=== PATIENT | male | born 1995 | race Caucasian/White ===

== ENCOUNTER 2018-04-18 16:35 | Emergency (ER) | payer SELFPAY ==
[~2018-04-18] VITALS: Ht 182.9 cm; Wt 60.3 kg
--- NOTE | 2018-04-18 17:04 | RAD ---
EXAM: Head CT without contrast. HISTORY: Headache. TECHNIQUE: Computed tomographic images of the head were obtained without contrast. *One or more of the following individualized dose reduction techniques were utilized for this examination: 1. Automated exposure control. 2. Adjustment of the mA and/or kV according to patient size. 3. Use of iterative reconstruction technique. COMPARISON: None. FINDINGS: There is no acute or subacute extra-axial or intraparenchymal hemorrhage. There is no mass effect or midline shift. There is no hydrocephalus. The vargas-white matter differentiation pattern is intact. There is severe bilateral ethmoid, severe left frontal and mild sphenoid sinus mucosal thickening. The orbits and mastoid air cells are unremarkable. IMPRESSION: 1. No acute intracranial finding. 2. Paranasal sinus disease. Electronically signed by: Sailaja Ghosh MD (04/18/2018 5:00 PM) [place] [id number]
[2018-04-18 17:21] LABS: BASO # 0.1 x10^3/uL (0.0-0.2); BASO % 1 % (0-3); EOS # 0.6 x10^3/uL (0.0-0.7); EOS % 6 % (0-3); HEMATOCRIT 49.8 % (39.0-53.0); HEMOGLOBIN 16.8 g/dL (13.0-17.5); LYMPH # 3.1 x10^3/uL (1.0-4.8); LYMPH % 34 % (24-48); MEAN CORPUSCULAR HEMOGLOBIN 31 pg (25-35); MEAN CORPUSCULAR HGB CONC 34 g/dL (31-37); MEAN CORPUSCULAR VOLUME 91 fL (79-100); MONO # 0.6 x10^3/uL (0.0-1.1); MONO % 7 % (0-9); NEUT # 4.9 x10^3uL (1.8-7.7); NEUT % 53 % (31-73); PLATELET COUNT 381 x10^3/uL (140-400); RED BLOOD COUNT 5.45 x10^6/uL (4.30-5.70); RED CELL DISTRIBUTION WIDTH 13.5 % (11.5-14.5); WHITE BLOOD COUNT 9.3 x10^3/uL (4.0-11.0)
[2018-04-18 17:29] LABS: CALCIUM 9.4 mg/dL (8.5-10.1); GFR 94.3; POTASSIUM 3.9 mmol/L (3.5-5.1)
--- NOTE | 2018-04-18 18:05 | PHYS DOC ---
Past History Past Medical History: No Pertinent History Past Surgical History: No Surgical History Alcohol Use: Occasionally Drug Use: None Adult General Chief Complaint Chief Complaint: HEADACHE HPI HPI 23-year-old male presenting the emergency department today with headache and weakness in his arm and leg for approximately 30 days. He reports having a headache that is on the left side that is nonradiating mild to moderate and getting worse over the past 30 days. He also feels mildly dizzy and with blurred vision. He also describes mild numbness in his left hand. He has his family history of seizures and brain tumors. Review of systems is negative for chest pain shortness of breath fevers chills neck pain neck stiffness confusion. All other review of systems is negative. ED course: 23-year-old male presenting with headache and focal neurologic changes. Patient is outside of the TPA window and outside of the mechanical thrombectomy window as his last known well was greater than 30 days ago. Vitals are unremarkable is well-appearing on examination but does have appreciable weakness on his left upper extremity more with his energy attorney then bicep or tricep strength. The left lower extremity demonstrates mild weakness in flexion at the knee joint with normal strength in extension of the knee joint. The remainder strength examination is unremarkable. Head CT is unremarkable. Blood work is unremarkable. We will admit the patient for neurology consultation and MRI of the brain. I spoke with Dr. Alfaro [facility] who accepts the patient for admission. Allergies Allergies Allergies Coded Allergies Type Severity Reaction Last Updated Verified No Known Drug Allergies 04/18/18 No Physical Exam Physical Exam Constitutional: Well developed, well nourished, no acute distress, non-toxic appearance. [] HENT: Normocephalic, atraumatic, bilateral external ears normal, oropharynx moist, no oral exudates, nose normal. [] Eyes: PERRLA, EOMI, conjunctiva normal, no discharge. [] Neck: Normal range of motion, no tenderness, supple, no stridor. [] Cardiovascular:Heart rate regular rhythm, no murmur [] Lungs & Thorax: Bilateral breath sounds clear to auscultation [] Abdomen: Bowel sounds normal, soft, no tenderness, no masses, no pulsatile masses. [] Skin: Warm, dry, no erythema, no rash. [] Back: No tenderness, no CVA tenderness. [] Extremities: No tenderness, no cyanosis, no clubbing, ROM intact, no edema. [] Neurologic: Mental status: Awake oriented and alert x3 Cranial nerves: Extraocular movements intact, eyebrows mackenzie bilaterally, smile symmetric, uvula elevation nl, shoulder shrug intact bilaterally, tongue protrusion normal DTRs: 2+ Sensation: decreased in the left hand, but otherwise intact Strength: as above Psychologic: Affect normal, judgement normal, mood normal. [] Current Patient Data Vital Signs Vital Signs Date Time Temp Pulse Resp B/P (MAP) Pulse Ox O2 Delivery O2 Flow Rate FiO2 04/18/18 16:45 97.9 74 16 100 Room Air Lab Results Laboratory Tests Test 04/18/18 17:08 White Blood Count 9.3 x10^3/uL (4.0-11.0) Red Blood Count 5.45 x10^6/uL (4.30-5.70) Hemoglobin 16.8 g/dL (13.0-17.5) Hematocrit 49.8 % (39.0-53.0) Mean Corpuscular Volume 91 fL (79-100) Mean Corpuscular Hemoglobin 31 pg (25-35) Mean Corpuscular Hemoglobin Concent 34 g/dL (31-37) Red Cell Distribution Width 13.5 % (11.5-14.5) Platelet Count 381 x10^3/uL (140-400) Neutrophils (%) (Auto) 53 % (31-73) Lymphocytes (%) (Auto) 34 % (24-48) Monocytes (%) (Auto) 7 % (0-9) Eosinophils (%) (Auto) 6 % (0-3) H Basophils (%) (Auto) 1 % (0-3) Neutrophils # (Auto) 4.9 x10^3uL (1.8-7.7) Lymphocytes # (Auto) 3.1 x10^3/uL (1.0-4.8) Monocytes # (Auto) 0.6 x10^3/uL (0.0-1.1) Eosinophils # (Auto) 0.6 x10^3/uL (0.0-0.7) Basophils # (Auto) 0.1 x10^3/uL (0.0-0.2) Sodium Level 144 mmol/L (136-145) Potassium Level 3.9 mmol/L (3.5-5.1) Chloride Level 104 mmol/L (98-107) Carbon Dioxide Level 28 mmol/L (21-32) Anion Gap 12 (6-14) Blood Urea Nitrogen 12 mg/dL (8-26) Creatinine 1.0 mg/dL (0.7-1.3) Estimated GFR (Cockcroft-Gault) 94.3 Glucose Level 92 mg/dL (70-99) Calcium Level 9.4 mg/dL (8.5-10.1) EKG EKG [] Radiology/Procedures Radiology/Procedures [] Course & Med Decision Making Course & Med Decision Making Pertinent Labs and Imaging studies reviewed. (See chart for details) [] Dragon Disclaimer Dragon Disclaimer This electronic medical record was generated, in whole or in part, using a voice recognition dictation system. Departure Departure: Impression: Primary Impression: Headache Additional Impression: Focal neurological deficit Disposition: 02 XFER SHT-TRM HOSP Condition: STABLE Referrals: PCP,NO (PCP) Problem Qualifiers PILO GONZALEZ MD Apr 18, 2018 18:05
[2018-04-18] MEDS ORDERED: LORazepam 2 MG/ML VIAL IV ONE (18:45)
[2018-04-18 19:47] VITALS: BP 171/80
== END 2018-04-18 21:22 | disposition short-term general hospital (02) ==
LOC: ER 16:35
DX: R51 Headache (principal); R29.818 Other symptoms and signs involving the nervous system
CPT/HCPCS: 36415; 70450; 80048; 85025; 96374; 99285; J2060

== ENCOUNTER 2018-05-19 17:45 | Emergency (ER) | payer SELFPAY ==
[~2018-05-19] VITALS: Ht 175.3 cm; Wt 58.0 kg
--- NOTE | 2018-05-19 18:06 | ED.ADGEN ---
Past History Past Medical History: No Pertinent History, Anxiety, Depression, Migraines, Seizure, Sinusitis Additional Past Medical Histor: separation disorder Past Surgical History: No Surgical History Alcohol Use: Occasionally Drug Use: None Adult General Chief Complaint Chief Complaint ".. I don't know.. I am confused.. I am . Scattered ...maybe I had a seizure... I ran out my seizure meds....." 4 days... ago..." [facility] HPI Patient is a 23 year old male who presents with above hx and complaints of confusions. Patient complaints of left-sided weakness and tingling. Patient on presentation hyperventilating. Pt seen here on 04/18/18, for headache, eventually transfer to [facility] to care of Dr. Alfaro. Pt. had further work up and discharged on Dilatin 300 mg a night after MRI and neurology follow-up. Pt. has been non compliant the last 4 days. Pt. also found to have sinusitis on previous work up. Pt. somewhat a poor historian. . Tonight presents as if post ictal. Patient does have past history of depression, anxiety disorder, separation disorder, seizure disorder, migraine headaches, and sinusitis. 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 Significant other- girl friend advised he is not had a seizure meds last 4 days. Pt. did use chain saw for about 4 hrs this afternoon before going to work at [employer]. Patient lives with his father has heart failure and a sister that has a disability. There is a nonspecific history of seizures and family and brain tumors. Patient denies any drug use today. No history of trauma. No history of travel or specific ill contacts. No history of fevers. Review of Systems Review of Systems Constitutional: Denies fever or chills [] Eyes: Denies change in visual acuity, redness, or eye pain []glasses. No terminal nystagmus. HENT: Complaints of nasal congestion and drainage. Small carlos on tongue. Does have poor dentition Respiratory: Denies cough or shortness of breath [] Cardiovascular: No additional information not addressed in HPI [] GI: Denies abdominal pain, nausea, vomiting, bloody stools or diarrhea [] : Denies dysuria or hematuria [] Musculoskeletal: Denies back pain or joint pain []complaints of weakness more Lt. side.. Integument: Denies rash or skin lesions [] Neurologic: Denies headache, subjective Lt side weakness, Rt. hand dominate or complaints of tingling in hands. []Complaints of confusion. DTRs +2 at patella and brachial. We will extremities on request. Patient does have does have some memory lapses events.. Endocrine: Denies polyuria or polydipsia [] All other systems were reviewed and found to be within normal limits, except as documented in this note. Family History Family History Father CHF. There is some nonspecific history of seizures and brain tumors with family members. Current Medications Current Medications Current Medications Medications (Trade) Dose Ordered Sig/Mandeep Start Time Stop Time Status Last Admin Dose Admin Albuterol/ Ipratropium (Duoneb) 3 ml RTQID 05/19/18 20:00 05/20/18 03:49 DC Aspirin (Terra Aspirin) 325 mg 1X ONCE 05/19/18 19:30 05/19/18 19:31 DC 05/19/18 19:52 325 MG Aspirin (Children'S Aspirin) 81 mg DAILY 05/20/18 09:00 05/20/18 09:00 DC Ceftriaxone Sodium 1 gm/ Sodium Chloride 50 ml @ 100 mls/hr DAILY 05/20/18 09:00 05/20/18 09:00 DC Ceftriaxone Sodium (Rocephin) 1 gm STK-MED ONCE 05/19/18 19:12 05/19/18 19:14 DC Fluticasone Propionate (Flonase) 2 spray BID 05/19/18 21:00 05/20/18 03:50 DC Lactated Ringer's 1,000 ml @ 200 mls/hr Q5H 05/19/18 20:00 05/20/18 03:50 DC Lorazepam (Ativan) 2 mg 1X PRN PRN 05/19/18 20:00 05/20/18 03:49 DC Magnesium Hydroxide (Milk Of Magnesia) 2,400 mg 1X ONCE 05/19/18 19:15 05/19/18 19:16 DC 05/19/18 19:16 2,400 MG Ondansetron HCl (Zofran) 4 mg PRN Q4HRS PRN 05/19/18 20:00 05/20/18 03:49 DC Phenytoin Sodium (Dilantin) 400 mg 1X ONCE 05/20/18 01:00 05/20/18 01:01 DC Potassium Chloride (KCl Oral Soln) 40 meq 1X ONCE 05/19/18 19:15 05/19/18 19:16 DC 05/19/18 19:17 40 MEQ Sodium Chloride 50 ml @ As Directed STK-MED ONCE 05/19/18 19:12 05/19/18 19:14 DC Allergies Allergies Allergies Coded Allergies Type Severity Reaction Last Updated Verified No Known Drug Allergies 04/18/18 No Physical Exam Physical Exam Constitutional: in acute emotional distress, non-toxic appearance. [] HENT: Normocephalic, atraumatic, bilateral external ears normal, oropharynx moist, no oral exudates, nose normal. Poor dentition Eyes: PERRLA, EOMI, conjunctiva normal, no discharge. [] Neck: Normal range of motion, no tenderness, supple, no stridor. [] Cardiovascular:Heart rate regular rhythm, no murmur [] Lungs & Thorax: Bilateral breath sounds equal apexes few scattered wheezes auscultation [] Abdomen: Bowel sounds normal, soft, no tenderness, no masses, no pulsatile masses. [] Skin: Warm, dry, no erythema, no rash. [] Back: No tenderness, no CVA tenderness. [] Extremities: No tenderness, no cyanosis, no clubbing, ROM intact, no edema. [] Neurologic: Alert and oriented X 3, normal motor function, normal sensory function, no focal deficits noted. []DTRs are +2 patella and brachial. Distilling Department Supervisor equal. Right-hand dominant. No drift. Psychologic: Affect very anxious, judgement normal, mood normal. [] Current Patient Data Vital Signs Vital Signs Date Time Temp Pulse Resp B/P (MAP) Pulse Ox O2 Delivery O2 Flow Rate FiO2 05/19/18 20:30 95 20 125/60 (81) 97 Room Air 05/19/18 17:45 97.7 Lab Results Laboratory Tests Test 05/19/18 17:49 05/19/18 17:55 05/19/18 18:30 05/19/18 19:14 White Blood Count 6.9 x10^3/uL (4.0-11.0) Red Blood Count 4.87 x10^6/uL (4.30-5.70) Hemoglobin 14.9 g/dL (13.0-17.5) Hematocrit 43.9 % (39.0-53.0) Mean Corpuscular Volume 90 fL (79-100) Mean Corpuscular Hemoglobin 31 pg (25-35) Mean Corpuscular Hemoglobin Concent 34 g/dL (31-37) Red Cell Distribution Width 13.8 % (11.5-14.5) Platelet Count 361 x10^3/uL (140-400) Neutrophils (%) (Auto) 47 % (31-73) Lymphocytes (%) (Auto) 36 % (24-48) Monocytes (%) (Auto) 11 % (0-9) H Eosinophils (%) (Auto) 6 % (0-3) H Basophils (%) (Auto) 1 % (0-3) Neutrophils # (Auto) 3.2 x10^3uL (1.8-7.7) Lymphocytes # (Auto) 2.5 x10^3/uL (1.0-4.8) Monocytes # (Auto) 0.7 x10^3/uL (0.0-1.1) Eosinophils # (Auto) 0.4 x10^3/uL (0.0-0.7) Basophils # (Auto) 0.1 x10^3/uL (0.0-0.2) Erythrocyte Sedimentation Rate 2 (0-15) Prothrombin Time 11.9 SEC (9.4-11.4) H Prothrombin Time INR 1.2 (0.9-1.1) H PTT 27 SEC (23-33) D-Dimer (Shannan) < 0.19 mg/L (0.00-0.50) Sodium Level 142 mmol/L (136-145) Potassium Level 3.4 mmol/L (3.5-5.1) L Chloride Level 103 mmol/L (98-107) Carbon Dioxide Level 26 mmol/L (21-32) Anion Gap 13 (6-14) Blood Urea Nitrogen 11 mg/dL (8-26) Creatinine 0.9 mg/dL (0.7-1.3) Estimated GFR (Cockcroft-Gault) 106.5 Glucose Level 109 mg/dL (70-99) H Calcium Level 9.1 mg/dL (8.5-10.1) Magnesium Level 2.2 mg/dL (1.8-2.4) Total Bilirubin 0.6 mg/dL (0.2-1.0) Direct Bilirubin 0.1 mg/dL (0.0-0.2) Aspartate Amino Transferase (AST) 13 U/L (15-37) L Alanine Aminotransferase (ALT) 18 U/L (16-63) Alkaline Phosphatase 60 U/L (46-116) Creatine Kinase 120 U/L (39-308) Troponin I Quantitative < 0.017 ng/mL (0-0.055) UG-Nzt-Y-Type Natriuretic Peptide 18 pg/mL (0-124) Total Protein 7.4 g/dL (6.4-8.2) Albumin 4.4 g/dL (3.4-5.0) Lipase 109 U/L (73-393) Glucose (Fingerstick) 120 mg/dL (70-99) H Phenytoin (Dilantin) Level < 0.5 mcg/mL (10.0-20.0) L Phenytoin Last Dose Date Unk Phenytoin Last Dose Time Unk Urine Collection Type Unknown Urine Color Straw Urine Clarity Clear Urine pH 8.5 Urine Specific [place] 1.015 Urine Protein Neg (NEG-TRACE) Urine Glucose (UA) Neg mg/dL (NEG) Urine Ketones (Stick) Neg mg/dL (NEG) Urine Blood Neg (NEG) Urine Nitrite Neg (NEG) Urine Bilirubin Neg (NEG) Urine Urobilinogen Dipstick 0.2 mg/dL (0.2 mg/dL) Urine Leukocyte Esterase Neg (NEG) Urine RBC 0 /HPF (0-2) Urine WBC 0 /HPF (0-4) Urine Squamous Epithelial Cells Occ /LPF Urine Bacteria 0 /HPF (0-FEW) Urine Opiates Screen Neg (NEG) Urine Methadone Screen Neg (NEG) Urine Barbiturates Neg (NEG) Urine Phencyclidine Screen Neg (NEG) Urine Amphetamine/Methamphetamine Neg (NEG) Urine Benzodiazepines Screen Neg (NEG) Urine Cocaine Screen Neg (NEG) Urine Cannabinoids Screen Neg (NEG) Urine Ethyl Alcohol Neg (NEG) EKG EKG My interpretation EKG shows a sinus rhythm at 92 bpm. Does have an occasional atrial premature complex. Some findings consistent with left ventricular hypertrophic. No findings acute STEMI with contralateral changes. There is a sinus arrhythmia.[] Radiology/Procedures Radiology/Procedures My interpretation CT of head shows no shift, mass, edema, bleed, or fracture. Does have findings of bilateral sinusitis fluid levels and ethmoid and sphenoid sinuses as well as some in the frontal sinus on the left.[] Reviewed MRI completed 04/18/2018 at [facility]. Findings showed sinusitis no acute neurological findings. My interpretation chest x-ray shows no acute cardiopulmonary findings. Does have some findings consistent of hyper inflation. Course & Med Decision Making Course & Med Decision Making Pertinent Labs and Imaging studies reviewed. (See chart for details). Reviewed MRI results at [facility] on recent admission there. Offered treatment patient for further neuro evaluation and cardiac serial testing. Patient refused admission. Patient advised not to drive.or at risks activities. Must follow-up primary care. Return if any concerns. Patient to resume his Dilantin 300 mg at night. Must keep follow-up with his neurologist. Patient advised to push fruit juices. Again Advised no driving until released neurology and his primary. Pt. girl lawson stated at time discharge is mental status had return to his normal presentation. Pt. left ambulatory with out problems. [] Final Impression Final Impression 1. Mental Status Change[]- Suspect Post ictal -atypical seizure 2. Hx. Seizure Disorder 3. Anxiety Disorder 4. Hx. Migraines 5. Hx. Sinus infections 6. Hx. Depression 7. Hx. Separation Disorder Dragon Disclaimer Dragon Disclaimer This electronic medical record was generated, in whole or in part, using a voice recognition dictation system. Dragon Disclaimer This chart was dictated in whole or in part using Voice Recognition software in a busy, high-work load, and often noisy Emergency Department environment. It may contain unintended and wholly unrecognized errors or omissions. Discharge Summary Visit Information Final Diagnosis Problems Medical Problems: (1) Confusion Status: Acute (2) Seizure Status: Acute Brief Hospital Course Allergies Allergies Coded Allergies Type Severity Reaction Last Updated Verified No Known Drug Allergies 04/18/18 No Vital Signs Vital Signs Date Time Temp Pulse Resp B/P (MAP) Pulse Ox O2 Delivery O2 Flow Rate FiO2 05/19/18 20:30 95 20 125/60 (81) 97 Room Air 05/19/18 17:45 97.7 Lab Results Laboratory Tests Test 05/19/18 17:49 05/19/18 17:55 05/19/18 18:30 05/19/18 19:14 White Blood Count 6.9 x10^3/uL (4.0-11.0) Red Blood Count 4.87 x10^6/uL (4.30-5.70) Hemoglobin 14.9 g/dL (13.0-17.5) Hematocrit 43.9 % (39.0-53.0) Mean Corpuscular Volume 90 fL (79-100) Mean Corpuscular Hemoglobin 31 pg (25-35) Mean Corpuscular Hemoglobin Concent 34 g/dL (31-37) Red Cell Distribution Width 13.8 % (11.5-14.5) Platelet Count 361 x10^3/uL (140-400) Neutrophils (%) (Auto) 47 % (31-73) Lymphocytes (%) (Auto) 36 % (24-48) Monocytes (%) (Auto) 11 % (0-9) Eosinophils (%) (Auto) 6 % (0-3) Basophils (%) (Auto) 1 % (0-3) Neutrophils # (Auto) 3.2 x10^3uL (1.8-7.7) Lymphocytes # (Auto) 2.5 x10^3/uL (1.0-4.8) Monocytes # (Auto) 0.7 x10^3/uL (0.0-1.1) Eosinophils # (Auto) 0.4 x10^3/uL (0.0-0.7) Basophils # (Auto) 0.1 x10^3/uL (0.0-0.2) Erythrocyte Sedimentation Rate 2 (0-15) Prothrombin Time 11.9 SEC (9.4-11.4) Prothromb Time International Ratio 1.2 (0.9-1.1) Activated Partial Thromboplast Time 27 SEC (23-33) D-Dimer (Shannan) < 0.19 mg/L (0.00-0.50) Sodium Level 142 mmol/L (136-145) Potassium Level 3.4 mmol/L (3.5-5.1) Chloride Level 103 mmol/L (98-107) Carbon Dioxide Level 26 mmol/L (21-32) Anion Gap 13 (6-14) Blood Urea Nitrogen 11 mg/dL (8-26) Creatinine 0.9 mg/dL (0.7-1.3) Estimated GFR (Cockcroft-Gault) 106.5 Glucose Level 109 mg/dL (70-99) Calcium Level 9.1 mg/dL (8.5-10.1) Magnesium Level 2.2 mg/dL (1.8-2.4) Total Bilirubin 0.6 mg/dL (0.2-1.0) Direct Bilirubin 0.1 mg/dL (0.0-0.2) Aspartate Amino Transf (AST/SGOT) 13 U/L (15-37) Alanine Aminotransferase (ALT/SGPT) 18 U/L (16-63) Alkaline Phosphatase 60 U/L (46-116) Creatine Kinase 120 U/L (39-308) Troponin I Quantitative < 0.017 ng/mL (0-0.055) NL-Khx-L-Type Natriuretic Peptide 18 pg/mL (0-124) Total Protein 7.4 g/dL (6.4-8.2) Albumin 4.4 g/dL (3.4-5.0) Lipase 109 U/L (73-393) Glucose (Fingerstick) 120 mg/dL (70-99) Phenytoin (Dilantin) Level < 0.5 mcg/mL (10.0-20.0) Phenytoin Last Dose Date Unk Phenytoin Last Dose Time Unk Urine Collection Type Unknown Urine Color Straw Urine Clarity Clear Urine pH 8.5 Urine Specific [place] 1.015 Urine Protein Neg (NEG-TRACE) Urine Glucose (UA) Neg mg/dL (NEG) Urine Ketones (Stick) Neg mg/dL (NEG) Urine Blood Neg (NEG) Urine Nitrite Neg (NEG) Urine Bilirubin Neg (NEG) Urine Urobilinogen Dipstick 0.2 mg/dL (0.2 mg/dL) Urine Leukocyte Esterase Neg (NEG) Urine RBC 0 /HPF (0-2) Urine WBC 0 /HPF (0-4) Urine Squamous Epithelial Cells Occ /LPF Urine Bacteria 0 /HPF (0-FEW) Urine Opiates Screen Neg (NEG) Urine Methadone Screen Neg (NEG) Urine Barbiturates Neg (NEG) Urine Phencyclidine Screen Neg (NEG) Urine Amphetamine/Methamphetamine Neg (NEG) Urine Benzodiazepines Screen Neg (NEG) Urine Cocaine Screen Neg (NEG) Urine Cannabinoids Screen Neg (NEG) Urine Ethyl Alcohol Neg (NEG) Brief Hospital Course Mr. Little is a 23 old male who presented with hx of seizure and post ictal confusion. Pt. demanded to be discharged home. Pt. also not taken seizure meds Dilantin the last fourt days. Risks of discharge and other missed pathology discussed with pt. Pt. exhibited UCAR capacity. Discharge Information Condition at Discharge: Improved, Stable Disposition/Orders: D/C to Home Dischare Medications Current Medications Lactated Ringer's 1,000 ml @ 1,000 mls/hr Q1H IV Last administered on at 18:40; Admin Dose 1,000 MLS/HR; Start 05/19/18 at 18:11; Stop 05/19/18 at 19: 10; Status DC Lorazepam (Ativan) 2 mg 1X ONCE PO Last administered on 05/19/18at 18:45; Admin Dose 2 MG; Start 05/19/18 at 18:30; Stop 05/19/18 at 18:38; Status DC Phenytoin Sodium (Dilantin) 600 mg 1X ONCE PO Last administered on 05/19/18at 19 :08; Admin Dose 600 MG; Start 05/19/18 at 18:45; Stop 05/19/18 at 18:46; Status DC Potassium Chloride (KCl Oral Soln) 40 meq 1X ONCE PO Last administered on at 19:17; Admin Dose 40 MEQ; Start 05/19/18 at 19:15; Stop 05/19/18 at 19:16; Status DC Magnesium Hydroxide (Milk Of Magnesia) 2,400 mg 1X ONCE PO Last administered on 05/19/18at 19:16; Admin Dose 2,400 MG; Start 05/19/18 at 19:15; Stop 05/19/18 at 19:16; Status DC Ceftriaxone Sodium 1 gm/ Sodium Chloride 50 ml @ 100 mls/hr 1X ONCE IV Last administered on 05/19/18at 19:17; Admin Dose 100 MLS/HR; Start 05/19/18 at 19:15; Stop 05/19/18 at 19:44; Status DC Sodium Chloride 50 ml @ As Directed STK-MED ONCE .ROUTE ; Start 05/19/18 at 19:12 ; Stop 05/19/18 at 19:14; Status DC Ceftriaxone Sodium (Rocephin) 1 gm STK-MED ONCE .ROUTE ; Start 05/19/18 at 19:12 ; Stop 05/19/18 at 19:14; Status DC Aspirin (Terra Aspirin) 325 mg 1X ONCE PO Last administered on 05/19/18at 19:52 ; Admin Dose 325 MG; Start 05/19/18 at 19:30; Stop 05/19/18 at 19:31; Status DC Ondansetron HCl (Zofran) 4 mg PRN Q4HRS PRN IV NAUSEA/VOMITING; Start 05/19/18 at 20:00; Stop 05/20/18 at 03:49; Status DC Albuterol/ Ipratropium (Duoneb) 3 ml RTQID NEB ; Start 05/19/18 at 20:00; Stop at 03:49; Status DC Ceftriaxone Sodium 1 gm/ Sodium Chloride 50 ml @ 100 mls/hr DAILY IV ; Start at 09:00; Stop 05/20/18 at 09:00; Status DC Lorazepam (Ativan) 2 mg 1X PRN PRN IV ANXIETY / AGITATION; Start 05/19/18 at 20: 00; Stop 05/20/18 at 03:49; Status DC Aspirin (Children'S Aspirin) 81 mg DAILY PO ; Start 05/20/18 at 09:00; Stop at 09:00; Status DC Phenytoin Sodium (Dilantin) 300 mg HS PO ; Start 05/19/18 at 21:00; Stop 05/20/18 at 03:50; Status DC Lactated Ringer's 1,000 ml @ 200 mls/hr Q5H IV ; Start 05/19/18 at 20:00; Stop 05/20/18 at 03:50; Status DC Fluticasone Propionate (Flonase) 2 spray BID NS ; Start 05/19/18 at 21:00; Stop 05/20/18 at 03:50; Status DC Phenytoin Sodium (Dilantin) 400 mg 1X ONCE PO ; Start 05/20/18 at 01:00; Stop at 01:01; Status DC Active Scripts Active Flonase Allergy Relief (Fluticasone Propionate) 9.9 Ml [place].susp 2 Sprays NS DAILY PRN 90 Days Dilantin (Phenytoin Sodium Extended) 100 Mg Capsule 300 Mg PO EVERY NIGHT 90 Days Keflex (Cephalexin) 500 Mg Capsule 500 Mg PO TID 10 Days NICOLE REYES MD May 19, 2018 18:06
[2018-05-19] MEDS ORDERED: IV RINGERS SOLUTION,LACTATED 1,000 ML IV SCH ×2 (18:11→20:00)
--- NOTE | 2018-05-19 18:16 | EKG ---
[address] [address] Test Date: 2018-05-19 Test Time: 18:07:26 Pat Name: JOIE PARIKH Department: Room: Gender: M Phone Technician: : [id number] Requested By: NICOLE REYES Order Number: [id number] Reading MD: Luis Armando Francis MD Measurements Intervals [place] Rate: 92 P: 56 GA: 164 QRS: 74 QRSD: 106 T: 54 QT: 368 QTc: 460 Interpretive Statements SINUS RHYTHM PAC'S Electronically Signed On 05-20-2018 10:19:01 COAL CUTTER by Luis Armando Francis MD
[2018-05-19 18:26] LABS: BASO # 0.1 x10^3/uL (0.0-0.2); BASO % 1 % (0-3); EOS # 0.4 x10^3/uL (0.0-0.7); EOS % 6 % (0-3); HEMATOCRIT 43.9 % (39.0-53.0); HEMOGLOBIN 14.9 g/dL (13.0-17.5); LYMPH # 2.5 x10^3/uL (1.0-4.8); LYMPH % 36 % (24-48); MEAN CORPUSCULAR HEMOGLOBIN 31 pg (25-35); MEAN CORPUSCULAR HGB CONC 34 g/dL (31-37); MEAN CORPUSCULAR VOLUME 90 fL (79-100); MONO # 0.7 x10^3/uL (0.0-1.1); MONO % 11 % (0-9); NEUT # 3.2 x10^3uL (1.8-7.7); NEUT % 47 % (31-73); PLATELET COUNT 361 x10^3/uL (140-400); RED BLOOD COUNT 4.87 x10^6/uL (4.30-5.70); RED CELL DISTRIBUTION WIDTH 13.8 % (11.5-14.5); WHITE BLOOD COUNT 6.9 x10^3/uL (4.0-11.0)
[2018-05-19] MEDS ORDERED: LORazepam 1 MG TABLET PO ONE (18:30)
--- NOTE | 2018-05-19 18:44 | RAD ---
CT Head W/O Contrast: History: Mental status change. Hx seizure and seizure medications w/o official diagnosis Comparison: none Axial images were obtained without contrast. The vargas and white matter appears normal and symmetrical for the patients age. There is no mass effect, extraaxial fluid collections or hydrocephalus. There is no gross bleed. There is no focal loss of vargas-white matter distinction to suggest acute ischemia, i.e. stroke. There is fluid in the ethmoid air cells and the sphenoid sinus and left frontal sinus. Impression: Moderate acute sinusitis. No acute intracranial findings. PQRS Compliance Statement: One or more of the following individualized dose reduction techniques were utilized for this examination: 1. Automated exposure control 2. Adjustment of the mA and/or kV according to patient size 3. Use of iterative reconstruction technique Electronically signed by: Eb Moore III, MD (05/19/2018 6:39 PM) [id number]
[2018-05-19] MEDS ORDERED: PHENYTOIN SODIUM EXTENDED 100 MG CAPSULE PO ONE (18:45)
[2018-05-19 18:51] LABS: ALBUMIN 4.4 g/dL (3.4-5.0); CALCIUM 9.1 mg/dL (8.5-10.1); CREATININE 0.9 mg/dL (0.7-1.3); DIRECT BILIRUBIN 0.1 mg/dL (0.0-0.2); GFR 106.5; MAGNESIUM 2.2 mg/dL (1.8-2.4); POTASSIUM 3.4 mmol/L (3.5-5.1); TOTAL BILIRUBIN 0.6 mg/dL (0.2-1.0); TOTAL PROTEIN 7.4 g/dL (6.4-8.2)
[2018-05-19] MEDS ORDERED: cefTRIAXone SODIUM 1 GM VIAL ONE (19:12)
[2018-05-19] MEDS ORDERED: IV NORMAL SALINE 50ML 50 ML ONE (19:12)
[2018-05-19] MEDS ORDERED: MAGNESIUM HYDROXIDE 2,400 MG/30 ML ORAL.SUSP. PO ONE (19:15)
[2018-05-19] MEDS ORDERED: POTASSIUM CHLORIDE 20 MEQ/15 ML ORAL LIQUID. PO ONE (19:15)
--- NOTE | 2018-05-19 19:20 | RAD ---
Chest PA and lateral: Reason for examination: Mental status changes. Shortness of breath. The heart size is normal. Mediastinum is unremarkable. Lung whitten are clear except for a small density in the right upper lobe which probably represents a small calcified granuloma.. No acute bony abnormalities are seen. Impression: No acute cardiopulmonary disease. Electronically signed by: Kisha Meza MD (05/19/2018 7:15 PM) [facility]
[2018-05-19] MEDS ORDERED: ASPIRIN 325 MG TABLET PO ONE (19:30)
[2018-05-19 19:40] LABS: BARBITURATES NEG (NEG); BENZODIAZEPINES NEG (NEG); CANNABINOIDS NEG (NEG); COCAINE NEG (NEG); METHADONE NEG (NEG); OPIATES NEG (NEG); PHENCYCLIDINE NEG (NEG)
[2018-05-19 19:46] LABS: AMPHETAMINE/METHAMPHETAMINE NEG (NEG)
[2018-05-19 19:46] LABS: PHENY < 0.5 mcg/mL (10.0-20.0)
[2018-05-19 19:47] LABS: SEDIMENTATION RATE 2 (0-15)
[2018-05-19 19:51] LABS: BACTERIA,URINE 0 /HPF (0-FEW); BILIRUBIN,URINE NEG (NEG); CLARITY,URINE CLEAR; COLOR,URINE STRAW; GLUCOSE,URINE NEG (NEG); NITRITE,URINE NEG (NEG); RBC,URINE 0 /HPF (0-2); SQUAMOUS EPITHELIAL CELL,UR OCC /LPF; UROBILINOGEN,URINE 0.2 mg/dL (0.2 mg/dL); WBC,URINE 0 /HPF (0-4)
[2018-05-19] MEDS ORDERED: ONDANSETRON PF 4 MG/2 ML VIAL. IV PRN (20:00)
[2018-05-19] MEDS ORDERED: IPRATRPIUM/ALBUTEROL 0.5/2.5MG 3 ML NEBU. NEB SCH (20:00)
[2018-05-19] MEDS ORDERED: LORazepam 2 MG/ML VIAL IV PRN (20:00)
[2018-05-19 20:30] VITALS: BP 125/60
[2018-05-19] MEDS ORDERED: PHEN100C PO (20:46)
[2018-05-19] MEDS ORDERED: FLUT9.9S NS (20:46)
[2018-05-19] MEDS ORDERED: CEPH-264 PO (20:46)
[2018-05-19] MEDS ORDERED: FLUTICASONE 50MCG/NASAL SPRAY 16GM BOTTLE. NS SCH (21:00)
[2018-05-19] MEDS ORDERED: PHENYTOIN SODIUM EXTENDED 100 MG CAPSULE PO SCH (21:00)
[2018-05-20] MEDS ORDERED: PHENYTOIN SODIUM EXTENDED 100 MG CAPSULE PO ONE (01:00)
[2018-05-20] MEDS ORDERED: ASPIRIN 81 MG TAB.CHEW PO SCH (09:00)
== END 2018-05-19 20:45 | disposition left against medical advice (07) ==
LOC: ER 17:45
DX: R41.82 Altered mental status, unspecified (principal); F41.9 Anxiety disorder, unspecified; G43.909 Migraine, unspecified, not intractable, without status migrainosus; F32.9 Major depressive disorder, single episode, unspecified; G40.909 Epilepsy, unspecified, not intractable, without status epilepticus; F93.0 Separation anxiety disorder of childhood
CPT/HCPCS: 36415; 70450; 71046; 80048; 80076; 80185; 80307; 81001; 82550; 82947; 83690; 83735; 83880; 84443; 84484; 85025; 85379; 85610; 85651; 85730; 93005; 96365; 99284; J0696; J7120

== ENCOUNTER 2018-06-08 17:13 | Emergency (ER) | payer SELFPAY ==
[~2018-06-08] VITALS: Ht 175.3 cm; Wt 59.0 kg
[~2018-06-08 17:13] MED LIST: CEPH-264 PO; FLUT9.9S NS; PHEN100C PO
[2018-06-08] MEDS ORDERED: IV NORMAL SALINE 1,000ML 1,000 ML IV ONE (17:45)
[2018-06-08] MEDS ORDERED: METOCLOPRAMIDE HCL 10 MG/2 ML VIAL. IV ONE (17:45)
[2018-06-08] MEDS ORDERED: KETOROLAC 30 MG/ML VIAL. IV ONE (17:45)
[2018-06-08] MEDS ORDERED: diphenhydrAMINE 50 MG/ML VIAL IVP ONE (17:45)
--- NOTE | 2018-06-08 17:47 | PHYS DOC ---
Past History Past Medical History: Anxiety, Depression, Migraines, Seizure, Sinusitis Additional Past Medical Histor: separation disorder (PADMA VELAZQUEZ DO) Past Surgical History: No Surgical History (PADMA VELAZQUEZ DO) Alcohol Use: None Drug Use: None (PADMA VELAZQUEZ DO) Adult General Chief Complaint Chief Complaint: HEADACHE HPI HPI 23-year-old male returns emergency room with frontal headache. Patient states he 's had this headache for 7 days. He has frequent headaches they're usually controlled with Tylenol. He has no formal migraine diagnosis. He has been diagnosed with seizures and is on a seizure medication. He states taking all his medications. This headache is similar to his previous headaches. He also tells me he feels like he has been getting a tremor that he calls a seizure precursor. He has not had a recent seizure while on his antiseizure medications. He denies fever or chills. (PADMA VELAZQUEZ DO) Review of Systems Review of Systems Constitutional: Denies fever or chills [] Eyes: Denies change in visual acuity, redness, or eye pain [] HENT: Denies nasal congestion or sore throat [] Respiratory: Denies cough or shortness of breath [] Cardiovascular: No additional information not addressed in HPI [] GI: Denies abdominal pain, nausea, vomiting, bloody stools or diarrhea [] : Denies dysuria or hematuria [] Musculoskeletal: Denies back pain or joint pain [] Integument: Denies rash or skin lesions [] Neurologic: Headache. Denies focal weakness or sensory changes [] Endocrine: Denies polyuria or polydipsia [] All other systems were reviewed and found to be within normal limits, except as documented in this note. (PADMA VELAZQUEZ DO) Current Medications Current Medications Current Medications Medications (Trade) Dose Ordered Sig/Mandeep Start Time Stop Time Status Last Admin Dose Admin Diphenhydramine HCl (Benadryl) 25 mg 1X ONCE 06/08/18 17:45 06/08/18 17:46 Ketorolac Tromethamine (Toradol 30mg Vial) 30 mg 1X ONCE 06/08/18 17:45 06/08/18 17:46 Metoclopramide HCl (Reglan Vial) 10 mg 1X ONCE 06/08/18 17:45 06/08/18 17:46 Sodium Chloride 1,000 ml @ 1,000 mls/hr 1X ONCE 06/08/18 17:45 06/08/18 18:44 (PADMA VELAZQUEZ DO) Allergies Allergies Allergies Coded Allergies Type Severity Reaction Last Updated Verified amoxicillin Allergy Unknown 06/08/18 Yes (PADMA VELAZQUEZ DO) Physical Exam Physical Exam Constitutional: Well developed, well nourished, no acute distress, non-toxic appearance. [] HENT: Normocephalic, atraumatic, bilateral external ears normal, oropharynx moist, no oral exudates, nose normal. [] Eyes: PERRLA, EOMI, conjunctiva normal, no discharge. [] Neck: Normal range of motion, no tenderness, supple, no stridor. [] Cardiovascular:Heart rate regular rhythm, no murmur [] Lungs & Thorax: Bilateral breath sounds clear to auscultation [] Abdomen: Bowel sounds normal, soft, no tenderness, no masses, no pulsatile masses. [] Skin: Warm, dry, no erythema, no rash. [] Back: No tenderness, no CVA tenderness. [] Extremities: No tenderness, no cyanosis, no clubbing, ROM intact, no edema. [] Neurologic: Alert and oriented X 3, normal motor function, normal sensory function, no focal deficits noted. [] Psychologic: Affect normal, judgement normal, mood anxious. [] (PADMA VELAZQUEZ DO) Current Patient Data Vital Signs Vital Signs Date Time Temp Pulse Resp B/P (MAP) Pulse Ox O2 Delivery O2 Flow Rate FiO2 06/08/18 17:20 97.6 80 20 100 Room Air (PADMA VELAZQUEZ DO) EKG EKG [] (PADMA VELAZQUEZ DO) Radiology/Procedures Radiology/Procedures [] (PADMA VELAZQUEZ DO) Course & Med Decision Making Course & Med Decision Making Pertinent Labs and Imaging studies reviewed. (See chart for details) Basic labs are pending. I will order 1 L normal saline, 25 mg of Benadryl IV, 10 mg of Reglan IV, 30 mg of Toradol IV. I'm signing out the patient to Dr. Johnson at 1800 for further management and final disposition. [] (PADMA VELAZQUEZ DO) Course & Med Decision Making Patient's care was accepted from Dr. Velazquez at 6:00 PM. Patient reevaluated at 7 :30 PM and reports that headache is resolved. (LESLY JOHNSON Jr. DO) Dragon Disclaimer Dragon Disclaimer This electronic medical record was generated, in whole or in part, using a voice recognition dictation system. (PADMA VELAZQUEZ DO) Departure Departure: Impression: Primary Impression: Migraine Disposition: 01 HOME, SELF-CARE Condition: STABLE Referrals: MELISA KIM MD (PCP) Patient Instructions: Migraine Headache Problem Qualifiers Primary Impression: Migraine Migraine type: without aura Status migrainosus presence: with status migrainosus Intractability: intractable Qualified Codes: G43.011 - Migraine without aura, intractable, with status migrainosus PADMA VELAZQUEZ DO Jun 08, 2018 17:47 LESLY JOHNSON Jr., DO Jun 08, 2018 19:32
[2018-06-08 18:48] LABS: BASO # 0.1 x10^3/uL (0.0-0.2); BASO % 1 % (0-3); EOS # 0.3 x10^3/uL (0.0-0.7); EOS % 5 % (0-3); HEMATOCRIT 44.5 % (39.0-53.0); HEMOGLOBIN 14.9 g/dL (13.0-17.5); LYMPH # 1.7 x10^3/uL (1.0-4.8); LYMPH % 25 % (24-48); MEAN CORPUSCULAR HEMOGLOBIN 31 pg (25-35); MEAN CORPUSCULAR HGB CONC 34 g/dL (31-37); MEAN CORPUSCULAR VOLUME 91 fL (79-100); MONO # 0.4 x10^3/uL (0.0-1.1); MONO % 6 % (0-9); NEUT # 4.3 x10^3uL (1.8-7.7); NEUT % 63 % (31-73); PLATELET COUNT 349 x10^3/uL (140-400); RED BLOOD COUNT 4.88 x10^6/uL (4.30-5.70); RED CELL DISTRIBUTION WIDTH 13.8 % (11.5-14.5); WHITE BLOOD COUNT 6.7 x10^3/uL (4.0-11.0)
[2018-06-08 18:57] LABS: ALBUMIN 4.1 g/dL (3.4-5.0); ALBUMIN/GLOBULIN RATIO 1.3 (1.0-1.7); CREATININE 0.8 mg/dL (0.7-1.3); POTASSIUM 4.2 mmol/L (3.5-5.1); TOTAL BILIRUBIN 0.2 mg/dL (0.2-1.0); TOTAL PROTEIN 7.3 g/dL (6.4-8.2)
[2018-06-08 19:23] VITALS: BP 125/58
== END 2018-06-08 19:36 | disposition home or self-care (01) ==
LOC: ER 17:13
DX: G43.011 Migraine without aura, intractable, with status migrainosus (principal); F41.9 Anxiety disorder, unspecified; F32.9 Major depressive disorder, single episode, unspecified; Z88.1 Allergy status to other antibiotic agents
CPT/HCPCS: 36415; 80053; 85025; 96374; 96375; 99283; J1200; J1885; J2765; J7030

== ENCOUNTER → 2018-07-08 | Outpatient (CLI) | payer OTHER ==
[2018-06-08 19:23] VITALS: BP 125/58
--- NOTE | 2018-07-09 08:09 | RAD ---
Right fingers radiograph 07/08/2018 7:25 PM INDICATION: Cut thumb at work today. COMPARISON: None available. TECHNIQUE: 3 views of the right first digit are provided. FINDINGS: There is no acute fracture or dislocation. Bone mineralization is within normal limits. Joint spaces are maintained. Regional soft tissue swelling is noted. There is no soft tissue gas or osseous erosion. IMPRESSION: Soft tissue swelling without acute fracture or dislocation. Electronically signed by: Renetta Mariee MD (07/09/2018 8:06 AM) [id number]
== END | disposition home or self-care (01) ==
LOC: PMG 19:03
PROVIDERS: ATTEND Registered Nurse
DX: S69.81XA Other specified injuries of right wrist, hand and finger(s), initial encounter (principal); W45.8XXA Other foreign body or object entering through skin, initial encounter; Y93.89 Activity, other specified; Y92.89 Other specified places as the place of occurrence of the external cause; Y99.0 Civilian activity done for income or pay
CPT/HCPCS: 73140